=== PATIENT | male | born 1970 | race American Indian/Alaskan Native ===

== ENCOUNTER 2019-09-03 06:00 | Emergency (ER) | payer BC ==
[2019-09-03 06:45] LABS: Bilirubin,Urine NEG (Negative); Blood,Urine MOD (Negative); Color,Urine Yellow (Yellow); Protein,Urine <15 mg/dL mg/dL (Negative); Urobilinogen,Urine < 2.0 mg/dL (<2.0); WBC,Urine < 1.0 /HPF (0.0-6.0)
[2019-09-03 07:11] LABS: Basophils # (Auto) 0.1 K/mm3 (0.0-0.1); Basophils % (Auto) 0.7 % (0.0-1.8); Eosinophils % (Auto) 0.2 % (0.0-4.3); Hematocrit 44.7 % (35.5-45.6); Hemoglobin 15.7 gm/dl (11.8-15.2); Lymphocytes # (Auto) 1.9 K/mm3 (1.2-5.4); Lymphocytes % (Auto) 24.3 % (13.4-35.0); Mean Corpuscular HGB Conc 35 % (32-34); Mean Corpuscular Volume 85 fl (84-94); Monocytes # (Auto) 0.7 K/mm3 (0.0-0.8); Monocytes % (Auto) 9.2 % (0.0-7.3); Platelet Count 307 K/mm3 (140-440); Red Blood Count 5.26 M/mm3 (3.65-5.03); Red Cell Distribution Width 14.3 % (13.2-15.2)
[2019-09-03 07:28] LABS: BUN/Creatinine Ratio 12; Blood Urea Nitrogen 12 mg/dL (9-20); Calcium 9.3 mg/dL (8.4-10.2); Hemolysis Index 14
[2019-09-03] MEDS ORDERED: SODIUM CHLORIDE 0.9% 1000 ML 1,000 ML IV ONE (07:40)
[2019-09-03] MEDS ORDERED: KETOROLAC 30 MG/1 ML INJ IV ONE (07:41)
[2019-09-03] MEDS ORDERED: amLODIPine 5 MG TAB PO ONE (07:42)
--- NOTE | 2019-09-03 07:42 | Emergency Department Report ---
ED Back Pain/Injury HPI - General Chief Complaint: Back Pain/Injury Stated Complaint: BACK PAIN Time Seen by Provider: 09/03/19 07:11 Source: patient Limitations: No Limitations - History of Present Illness Initial Comments: This is a 49-year-old -[place] male who presents to the emergency room with left flank pain and hematuria for 2 days. Patient states when he urinated Tuesday morning he noticed increased hematuria and heard a sound as if a rock hit his toilet while urinating. Past medical history of hypertension, arthritis, and kidney stones. He also reports a pulling sensation to pelvic region when he urinates. States symptoms feel similar to when he had kidney stones in the past. He denies fever, chills, urinary frequency, urgency, dysuria, nausea, and vomiting. MD Complaint: back pain Onset/Timin -: days(s) Similar Symptoms Previously: Yes (Kidney stones) Place: home Radiation: none Severity: moderate Severity scale (0 -10): 6 Quality: stabbing Consistency: intermittent Improves With: none Worsens With: other (Urination) Associated Symptoms: denies: numbness, difficulty urinating, incontinence, fever/chills - Related Data Home Medications Medication Instructions Recorded Confirmed Last Taken Azilsartan Med/Chlorthalidone 5 mg PO DAILY 01/29/14 03/27/14 03/27/14 06:00 [Edarbyclor 40-12.5 mg] Ciprofloxacin HCl [Cipro] 500 mg PO BID 03/07/14 03/27/14 Unknown amLODIPine 5 mg PO DAILY 03/07/14 03/27/14 03/27/14 06:00 Previous Rx's Medication Instructions Recorded Last Taken Type HYDROcodone/APAP 10-325 [[place] 1 each PO Q6HR PRN #20 tablet 02/17/14 03/25/14 Rx 10/325] Ibuprofen [Motrin 600 MG tab] 600 mg PO Q8H PRN #30 tablet 09/03/19 Unknown Rx Tamsulosin [Flomax] 0.4 mg PO QDAY #7 cap 09/03/19 Unknown Rx Allergies Allergy/AdvReac Type Severity Reaction Status Date / Time No Known Allergies Allergy Verified 02/21/14 13:37 ED Review of Systems ROS: Stated complaint: BACK PAIN Other details as noted in HPI Constitutional: denies: chills, fever ENT: denies: ear pain, throat pain Respiratory: denies: cough, shortness of breath, wheezing Cardiovascular: denies: chest pain, palpitations Gastrointestinal: denies: abdominal pain, nausea, diarrhea Genitourinary: hematuria. denies: urgency, dysuria, frequency, discharge, testicular pain, testicular mass Musculoskeletal: back pain (Left flank pain). denies: joint swelling, arthralgia Skin: denies: rash, lesions Neurological: denies: headache, weakness, paresthesias Psychiatric: denies: anxiety, depression ED Back Pain Physical Exam - Exam General: Vital signs noted. No distress. Alert and acting appropriately. Back/Abdomen: Yes Flank Tenderness (Left), No Abdominal Tenderness, No Perithoracic Tenderness, No Perilumbar Tenderness, No Sacroiliac Tenderness, No Straight Leg Raise Pain Neuro: Yes Normal Sensation, Yes Normal DTR's, Yes Normal Gait, No Motor Weakness ED Course Vital Signs 09/03/19 09/03/19 06:05 06:38 Temperature 97.3 F L Pulse Rate 104 H Respiratory 18 16 Rate Blood Pressure 172/111 O2 Sat by Pulse 96 Oximetry Vital Signs 09/03/19 09/03/19 09/03/19 06:05 06:38 08:03 Temperature 97.3 F L Pulse Rate 104 H 88 Respiratory 18 16 Rate Blood Pressure 172/111 147/117 O2 Sat by Pulse 96 Oximetry 09/03/19 09:33 Temperature 97.6 F Pulse Rate 82 Respiratory 18 Rate Blood Pressure 163/109 O2 Sat by Pulse 98 Oximetry Ed Back Pain Tests - Tests Tests: Abnormal UA (Moderate below the) ED Medical Decision Making - Lab Data Result diagrams: 09/03/19 06:19 09/03/19 06:19 Lab Results 09/03/19 09/03/19 09/03/19 Range/Units 06:10 06:19 06:19 WBC 7.8 (4.5-11.0) K/mm3 RBC 5.26 H (3.65-5.03) M/mm3 Hgb 15.7 H (11.8-15.2) gm/dl Hct 44.7 (35.5-45.6) % MCV 85 (84-94) fl MCH 30 (28-32) pg MCHC 35 H (32-34) % RDW 14.3 (13.2-15.2) % Plt Count 307 (140-440) K/mm3 Lymph % (Auto) 24.3 (13.4-35.0) % [place] % (Auto) 9.2 H (0.0-7.3) % Eos % (Auto) 0.2 (0.0-4.3) % Baso % (Auto) 0.7 (0.0-1.8) % Lymph # 1.9 (1.2-5.4) K/mm3 [place] # 0.7 (0.0-0.8) K/mm3 Eos # 0.0 (0.0-0.4) K/mm3 Baso # 0.1 (0.0-0.1) K/mm3 Seg Neutrophils % 65.6 (40.0-70.0) % Seg Neutrophils # 5.2 (1.8-7.7) K/mm3 Sodium 133 L (137-145) mmol/L Potassium 3.7 (3.6-5.0) mmol/L Chloride 95.6 L (98-107) mmol/L Carbon Dioxide 23 (22-30) mmol/L Anion Gap 18 mmol/L BUN 12 (9-20) mg/dL Creatinine 1.0 (0.8-1.5) mg/dL Estimated GFR > 60 ml/min BUN/Creatinine Ratio 12 % Glucose 163 H (75-100) mg/dL Calcium 9.3 (8.4-10.2) mg/dL Urine Color Yellow (Yellow) Urine Turbidity Clear (Clear) Urine pH 6.0 (5.0-7.0) Ur Specific [place] 1.013 (1.003-1.030) Urine Protein <15 mg/dl (Negative) mg/dL Urine Glucose (UA) Neg (Negative) mg/dL Urine Ketones Neg (Negative) mg/dL Urine Blood Mod (Negative) Urine Nitrite Neg (Negative) Urine Bilirubin Neg (Negative) Urine Urobilinogen < 2.0 (<2.0) mg/dL Ur Leukocyte Esterase Neg (Negative) Urine WBC (Auto) < 1.0 (0.0-6.0) /HPF Urine RBC (Auto) 7.0 (0.0-6.0) /HPF - Radiology Data Radiology results: report reviewed CT ABDOMEN AND PELVIS WITHOUT CONTRAST HISTORY: left flank pain r/o kidney stones. COMPARISON: CT abdomen/pelvis from 02/17/2014 TECHNIQUE: CT images of the abdomen and pelvis were obtained without administration of intravenous contrast. All CT scans at this location are performed using CT dose reduction for ALARA by means of automated exposure control. FINDINGS: Lungs/bones: Lung bases are clear. There are degenerative changes within the spine and pelvis with no acute osseous abnormality identified. Abdomen/pelvis: There is borderline hepatic steatosis. Liver is otherwise unremarkable. The gallbladder, spleen, pancreas, adrenals, and proximal GI tract appear unremarkable. There is punctate nonobstructive nephrolithiasis in both kidneys with bilateral 1 mm upper pole nonobstructive calyceal stones. There is a simple cyst in the midpole on the right. No ureteral stone or hydronephrosis is present. No urinary bladder calculus or mass. The prostate is unremarkable with no pelvic free fluid. There is colonic diverticulosis with no acute inflammatory change identified. The terminal ileum and appendix appear normal. IMPRESSION: 1. Nonobstructive nephrolithiasis. Otherwise nothing acute. - Medical Decision Making This is a 49-year-old male who presents to the emergency room with left flank pain and hematuria for 2 days. Patient is afebrile with no acute distress. Negative CVA tenderness and abdominal tenderness on exam. Symptoms most likely related to renal colic from a non-infected kidney stone.there is a low suspicion of appendicitis, genital torsion, acute cholecystitis, aortic dissection, or serious bacterial infection. Work-up: CBC, BMP, urinalysis, CT of abdomen and pelvis noncontrast. Urinalysis with moderate blood. Mild dehydration. Given IV fluids, IV analgesics. Blood pressure elevated but patient admits to not taking blood pressure medication this morning. Given amlodipine [address] of abdomen and pelvis findings of Nonobstructive nephrolithiasis. Otherwise nothing acute. Patient is tolerating oral fluids and pain is controlled. Start analgesics and tamsulosin. Follow-up with primary care doctor in 2 to 3 days.. Referral to urology. Patient discharged home stable with strict return instructions. Critical care attestation.: If time is entered above; I have spent that time in minutes in the direct care of this critically ill patient, excluding procedure time. ED Disposition Clinical Impression: Nephrolithiasis, Acute left flank pain Hematuria Qualifiers: Hematuria type: benign essential microscopic Qualified Code(s): R31.1 - Benign essential microscopic hematuria Disposition: DC- TO HOME OR SELFCARE Is pt being admited?: No Condition: Stable Instructions: Kidney Stones (ED), Renal Colic (ED) Additional Instructions: Increase fluid intake to 1 L to 2 L per day. Strain urine as instructed. Take pain medication as needed to control pain. Follow-up with your primary care doctor in 2 to 3 days. I have provided a list of urology for you to contact for further management. Return to the emergency room if worsening symptoms. Prescriptions: Tamsulosin [Flomax] 0.4 mg PO QDAY #7 cap Ibuprofen [Motrin 600 MG tab] 600 mg PO Q8H PRN #30 tablet PRN Reason: Pain Referrals: YUMIKO RAMIREZ MD [Staff Physician] - 3-5 Days [facility] [Provider Group] - 3-5 Days [facility] [Provider Group] - 3-5 Days [facility] [Provider Group] - 3-5 Days Forms: Work/School Release Form(ED) Time of Disposition: 08:39
--- NOTE | 2019-09-03 08:19 | Cat Scan Report ---
CT ABDOMEN AND PELVIS WITHOUT CONTRAST HISTORY: left flank pain r/o kidney stones. COMPARISON: CT abdomen/pelvis from 02/17/2014 TECHNIQUE: CT images of the abdomen and pelvis were obtained without administration of intravenous co ntrast. All CT scans at this location are performed using CT dose reduction for ALARA by means of au tomated exposure control. FINDINGS: Lungs/bones: Lung bases are clear. There are degenerative changes within the spine and pelvis with n o acute osseous abnormality identified. Abdomen/pelvis: There is borderline hepatic steatosis. Liver is otherwise unremarkable. The gallblad angelita, spleen, pancreas, adrenals, and proximal GI tract appear unremarkable. There is punctate nonobstructive nephrolithiasis in both kidneys with bilateral 1 mm upper pole nonob structive calyceal stones. There is a simple cyst in the midpole on the right. No ureteral stone or h ydronephrosis is present. No urinary bladder calculus or mass. The prostate is unremarkable with no pelvic free fluid. There is colonic diverticulosis with no acute inflammatory change identified. The terminal ileum and appendix appear normal. IMPRESSION: 1. Nonobstructive nephrolithiasis. Otherwise nothing acute. Signer Name: Marquis Lomax MD Signed: 09/03/2019 8:15 AM Workstation Name: [id number]
[2019-09-03 09:35] VITALS: BP 163/109
== END 2019-09-03 09:36 | disposition home or self-care (01) ==
LOC: ED 06:00
DX: N20.0 Calculus of kidney (principal); R31.9 Hematuria, unspecified; E86.0 Dehydration; R10.9 Unspecified abdominal pain; I10 Essential (primary) hypertension; M19.90 Unspecified osteoarthritis, unspecified site; Z79.899 Other long term (current) drug therapy
CPT/HCPCS: 36415; 74176; 80048; 81001; 85025; 96374; 99284; J1885; J7030; 96361

== ENCOUNTER 2020-04-05 12:07 | Emergency (ER) | payer BC ==
[2020-04-05 12:20] VITALS: BP 168/107
[2020-04-05 15:54] LABS: Bilirubin,Urine NEG (Negative); Blood,Urine MOD (Negative); Color,Urine Yellow (Yellow); Mucus,Urine FEW /HPF; Protein,Urine <15 mg/dL mg/dL (Negative); Urobilinogen,Urine < 2.0 mg/dL (<2.0)
[2020-04-05] MEDS ORDERED: KETOROLAC 30 MG/1 ML INJ IV ONE (17:41)
--- NOTE | 2020-04-05 17:48 | Emergency Department Report ---
ED General Adult HPI - General Chief complaint: Back Pain/Injury Stated complaint: KIDNEY STONE PAIN Time Seen by Provider: 04/05/20 17:31 Source: patient Mode of arrival: Ambulatory Limitations: No Limitations - History of Present Illness Initial comments: 49-year-old male presents to the emergency room with complaints of left pink flank pain x2 days he rates his pain 6/10. He reports seeing blood in his urine and urinary frequency started yesterday. At 9 AM the pain worsened but is now at a 6/10. Patient reports a history of kidney stones. Patient denies abdominal pain he denies fever nausea vomiting -: days(s) (2) Radiation: flank (Left ) Severity scale (0 -10): 6 Quality: aching Improves with: none Worsens with: none Associated Symptoms: denies: chest pain, cough, diaphoresis, fever/chills, loss of appetite, malaise, nausea/vomiting, rash, shortness of breath, syncope Treatments Prior to Arrival: none - Related Data Home Medications Medication Instructions Recorded Confirmed Last Taken Azilsartan Med/Chlorthalidone 5 mg PO DAILY 01/29/14 03/27/14 03/27/14 06:00 [Edarbyclor 40-12.5 mg] Ciprofloxacin HCl [Cipro] 500 mg PO BID 03/07/14 03/27/14 Unknown amLODIPine 5 mg PO DAILY 03/07/14 03/27/14 03/27/14 06:00 Previous Rx's Medication Instructions Recorded Last Taken Type HYDROcodone/APAP 10-325 [[place] 1 each PO Q6HR PRN #20 tablet 02/17/14 03/25/14 Rx 10/325] Ibuprofen [Motrin 600 MG tab] 600 mg PO Q8H PRN #30 tablet 09/03/19 Unknown Rx Tamsulosin [Flomax] 0.4 mg PO QDAY #7 cap 09/03/19 Unknown Rx Ciprofloxacin [Ciprofloxacin ORAL 500 mg PO Q12H #5 ml 04/05/20 Unknown Rx LIQ] Tamsulosin [Flomax] 0.4 mg PO QDAY #7 cap 04/05/20 Unknown Rx Allergies Allergy/AdvReac Type Severity Reaction Status Date / Time No Known Allergies Allergy Verified 02/21/14 13:37 ED Review of Systems ROS: Stated complaint: KIDNEY STONE PAIN Other details as noted in HPI Comment: All other systems reviewed and negative Constitutional: no symptoms reported. denies: chills, fever, malaise ENT: denies: ear pain, throat pain, dental pain, hearing loss, epistaxis Respiratory: denies: cough, shortness of breath, SOB with exertion Cardiovascular: denies: chest pain, palpitations Gastrointestinal: denies: abdominal pain Genitourinary: hematuria Musculoskeletal: other (left flank pain ) Skin: denies: rash, change in color Neurological: denies: headache, weakness Psychiatric: denies: anxiety, depression Hematological/Lymphatic: easy bleeding, easy bruising ED Past Medical Hx - Past Medical History Previous Medical History?: Yes Hx Hypertension: Yes Hx Heart Attack/AMI: No Hx Liver Disease: No Hx Renal Disease: Yes (stones) Hx Sickle Cell Disease: No Hx Arthritis: Yes Hx Seizures: No Hx Kidney Stones: Yes Hx Asthma: No - Surgical History Past Surgical History?: Yes Additional Surgical History: Kidney stone removal - Social History Smoking Status: Current Every Day Smoker Substance Use Type: None - Medications Home Medications: Home Medications Medication Instructions Recorded Confirmed Last Taken Type Azilsartan Med/Chlorthalidone 5 mg PO DAILY 01/29/14 03/27/14 03/27/14 06:00 History [Edarbyclor 40-12.5 mg] HYDROcodone/APAP 10-325 [[place] 1 each PO Q6HR PRN #20 tablet 02/17/14 03/27/14 03/25/14 Rx 10/325] Ciprofloxacin HCl [Cipro] 500 mg PO BID 03/07/14 03/27/14 Unknown History amLODIPine 5 mg PO DAILY 03/07/14 03/27/14 03/27/14 06:00 History Ibuprofen [Motrin 600 MG tab] 600 mg PO Q8H PRN #30 tablet 09/03/19 Unknown Rx Tamsulosin [Flomax] 0.4 mg PO QDAY #7 cap 09/03/19 Unknown Rx Ciprofloxacin [Ciprofloxacin ORAL 500 mg PO Q12H #5 ml 04/05/20 Unknown Rx LIQ] Tamsulosin [Flomax] 0.4 mg PO QDAY #7 cap 04/05/20 Unknown Rx ED Physical Exam - General Limitations: No Limitations General appearance: alert, in no apparent distress - Eye Eye exam: Present: normal appearance. Absent: scleral icterus - ENT ENT exam: Present: mucous membranes moist - Neck Neck exam: Present: normal inspection - Respiratory Respiratory exam: Present: normal lung sounds bilaterally. Absent: respiratory distress, wheezes - Cardiovascular Cardiovascular Exam: Present: regular rate, normal heart sounds - Extremities Exam Extremities exam: Present: normal inspection - Back Exam Back exam: Absent: CVA tenderness (R), CVA tenderness (L) - Neurological Exam Neurological exam: Present: alert, oriented X3 - Psychiatric Psychiatric exam: Present: normal affect - Skin Skin exam: Present: warm, dry, normal color ED Course Vital Signs 04/05/20 04/05/20 12:14 17:48 Temperature 98.8 F Pulse Rate 91 H Respiratory 20 18 Rate Blood Pressure 168/107 O2 Sat by Pulse 97 Oximetry ED Medical Decision Making - Lab Data Result diagrams: 04/05/20 17:50 - Radiology Data Radiology results: report reviewed CT of ABD./PELVIS IMPRESSION: 1. No CT evidence of acute inflammatory or obstructive process within the abdomen or pelvis. 2. Colonic diverticulosis without evidence for diverticulitis. - Medical Decision Making CT scan negative for kidney stone is positive diverticulosis without diverticulitis. No hydronephrosis noted Critical care attestation.: If time is entered above; I have spent that time in minutes in the direct care of this critically ill patient, excluding procedure time. ED Disposition Clinical Impression: Left low back pain Qualifiers: Chronicity: unspecified Sciatica presence: without sciatica Qualified Code(s): M54.5 - Low back pain Hematuria Qualifiers: Hematuria type: unspecified type Qualified Code(s): R31.9 - Hematuria, unspecified Disposition: - TO HOME OR SELFCARE Is pt being admited?: No Does the pt Need Aspirin: No Condition: Stable Instructions: Flank Pain (ED), Acute Hematuria (ED) Additional Instructions: Increase your water intake to at least 8 glasses/day decrease soda alcohol intake follow-up with urologist Dr. Haskins. Okay to use [id number] Tylenol or Advil as needed for pain take as instructed by package insert. Prescriptions: Ciprofloxacin [Ciprofloxacin ORAL LIQ] 500 mg PO Q12H #5 ml Tamsulosin [Flomax] 0.4 mg PO QDAY #7 cap Referrals: PRIMARY MD BRITNEY [Primary Care Provider] - 3-5 Days IRAIDA HASKINS MD [Staff Physician] - 3-5 Days Time of Disposition: 18:39
[2020-04-05 18:19] LABS: Hematocrit 43.7 % (35.5-45.6); Hemoglobin 15.5 gm/dl (11.8-15.2); Mean Corpuscular HGB Conc 36 % (32-34); Mean Corpuscular Volume 84 fl (84-94); Platelet Count 304 K/mm3 (140-440); Red Blood Count 5.23 M/mm3 (3.65-5.03); Red Cell Distribution Width 14.2 % (13.2-15.2)
--- NOTE | 2020-04-05 18:29 | Cat Scan Report ---
CT ABDOMEN AND PELVIS WITHOUT CONTRAST INDICATION: Left flank pain TECHNICAL: Multiple axial CT images of the abdomen and pelvis were acquired without intravenous contr ast. Sagittal and coronal reformats were obtained. All CTs at this facility utilize dose reduction techniques including automated exposure control, iterative reconstruction and weight based dosing whe n appropriate to reduce patient radiation dose to as low as reasonable achievable. COMPARISON: CT of the abdomen and pelvis, 09/03/2019 FINDINGS: Limited imaging of the bilateral lung bases demonstrates no acute abnormality. Abdomen: Within the limitations of today's noncontrast technique, the liver, spleen, gallbladder, rock creas, bilateral adrenal glands and bilateral kidneys show no evidence of acute abnormality. The 2.7 cm cyst in the lower pole of the right kidney is again noted. There is no evidence of bowel obstructi on. There is marked diverticulosis of the colon without evidence for diverticulitis. The appendix is visualized and appears normal. Pelvis: No free fluid is seen within the pelvis. The urinary bladder appears normal. Bones and Soft Tissues: There are mild degenerative changes throughout the lower lumbar spine. Evalu ation of soft tissue structures demonstrates no focal soft tissue abnormality. IMPRESSION: 1. No CT evidence of acute inflammatory or obstructive process within the abdomen or pelvis. 2. Colonic diverticulosis without evidence for diverticulitis. Signer Name: Liya Merchant MD Signed: 04/05/2020 6:25 PM Workstation Name: [id number]
[2020-04-05 18:42] LABS: Alanine Aminotransferase 27 units/L (7-56); Albumin 4.4 g/dL (3.9-5); BUN/Creatinine Ratio 11; Blood Urea Nitrogen 9 mg/dL (9-20); Calcium 9.5 mg/dL (8.4-10.2); Hemolysis Index 9
== END 2020-04-05 18:59 | disposition home or self-care (01) ==
LOC: ED 12:07
DX: M54.5 Low back pain (principal); R31.9 Hematuria, unspecified; I10 Essential (primary) hypertension; M19.91 Primary osteoarthritis, unspecified site; F17.200 Nicotine dependence, unspecified, uncomplicated; Z98.890 Other specified postprocedural states; Z79.1 Long term (current) use of non-steroidal anti-inflammatories (NSAID); Z79.2 Long term (current) use of antibiotics; Z79.899 Other long term (current) drug therapy
CPT/HCPCS: 36415; 74176; 80053; 81001; 85027; 96374; 99284; J1885